=== PATIENT | female | born 1975 | race Caucasian/White ===

== ENCOUNTER 2021-04-13 05:52 | Day surgery (SDC) | payer OTHER ==
[~2021-04-13 05:52] MED LIST: PRENATAL CAPLE1 EACH PO
[2021-04-13] MEDS ORDERED: ULTRAM50 MG PO (08:52)
[2021-04-13] MEDS ORDERED: KETO10TA2 PO (08:52)
== END 2021-04-13 11:35 | disposition home or self-care (01) ==
LOC: CIR.AMB 05:52
PROVIDERS: ATTEND Surgery
DX: K43.9 Ventral hernia without obstruction or gangrene (principal); Z20.822 Contact with and (suspected) exposure to COVID-19